=== PATIENT | female | born 1980 | race Caucasian/White ===

== ENCOUNTER 2017-04-04 12:28 | Emergency (ER) | payer OTHER ==
[2017-04-04] MEDS ORDERED: Adacel (T-DAP) 0.5 ML VIAL ONE (14:24)
== END 2017-04-04 14:50 | disposition home or self-care (01) ==
LOC: ERS 12:28
DX: S61.012A Laceration without foreign body of left thumb without damage to nail, initial encounter (principal); G43.909 Migraine, unspecified, not intractable, without status migrainosus; F17.210 Nicotine dependence, cigarettes, uncomplicated; W26.0XXA Contact with knife, initial encounter
CPT/HCPCS: 12001; 90471; 90715

== ENCOUNTER 2018-08-20 08:55 | Outpatient (CLI) | payer OTHER ==
--- NOTE | 2018-08-20 11:58 | ULT ---
RIGHT BREAST ULTRASOUND: HISTORY: Brownish discharge from the right nipple. CORRELATION: Mammogram from the same day. FINDINGS: Sonographic evaluation of the retroareolar region of the right breast demonstrates a dilated duct, me asuring about 5 mm. No intraarticular mass is seen. IMPRESSION: BI-RADS category 0-Incomplete assessment. Further evaluation with breast MRI (with and without intra venous contrast) is recommended. POS: OFF
--- NOTE | 2018-08-21 15:32 | MMO ---
MAMMO Bilat Diag [facility]. CLINICAL HISTORY: Patient is 38 years old and is seen for diagnostic exam and bloody discharge in the right breast. The patient has no family history of breast cancer. The patient has no personal history of cancer. VIEWS: The views performed were: bilateral craniocaudal with tomosynthesis; bilateral mediolateral oblique with tomosynthesis; bilateral mediolateral; and bilateral exaggerated craniocaudal. FILMS COMPARED: The present examination has been compared to a prior imaging study performed at [facility] on 08/20/2018. MAMMOGRAM FINDINGS: There are scattered fibroglandular densities. There are no suspicious masses, calcifications or areas of architectural distortion. Right breast US shows a dilated duct without intraductal mass. IMPRESSION: FINDING IN THE RIGHT BREAST REQUIRES ADDITIONAL EVALUATION. BREAST MRI IS RECOMMENDED. THE RESULTS OF THIS EXAM WERE SENT TO THE PATIENT. ACR BI-RADS Category 0 - Incomplete: Need additional imaging evaluation. [facility] will notify the patient of the need for additional imaging services. MAMMOGRAPHY NOTE: 1. A negative mammogram report should not delay a biopsy if a dominant of clinically suspicious mass is present. 2. Approximately 10% to 15% of breast cancers are not detected by mammography. 3. Adenosis and dense breasts may obscure an underlying neoplasm.
== END 2018-08-20 08:56 | disposition home or self-care (01) ==
LOC: BICMAMMO 08:55
PROVIDERS: ATTEND Advanced Practice Midwife
DX: N64.52 Nipple discharge (principal)
CPT/HCPCS: 77066; G0279

== ENCOUNTER 2018-10-16 08:19 | Outpatient (CLI) | payer OTHER ==
--- NOTE | 2018-10-18 10:29 | MRI ---
MRI BREAST WITH AND WITHOUT IV CONTRAST AND 3D PROCESSING ON INDEPENDENT WORKSTATION: Date: 10/16/18 HISTORY: Bloody discharge from right nipple. CORRELATION: Mammograms and right breast ultrasound of 08/20/18. FINDINGS: A dilated duct is seen close to the right nipple. No mass or abnormal postcontrast enhancement is not ed on either side. No lymphadenopathy is noted in the axillary or internal mammary lymph nodes. No ab normal skin thickening is seen. IMPRESSION: 1. BIRADS Category 2 - Benign findings. Return to annual mammographic screening. 2. Surgical consultation for right ductal excision is recommended. This study was interpreted in consultation with Dr. Dajuan Perez, who concurs. POS: [facility]
== END 2018-10-16 08:20 | disposition home or self-care (01) ==
LOC: BICMRI 08:19
PROVIDERS: ATTEND Advanced Practice Midwife
DX: N64.52 Nipple discharge (principal)
CPT/HCPCS: A9577; C8908

== ENCOUNTER 2018-11-07 16:10 | Outpatient (CLI) | payer OTHER ==
[2018-11-07 17:28] LABS: #Basophils 0.1 thou/uL (0.0-0.2); #Eosinphils 0.1 thou/uL (0.0-0.7); #Lymphocytes 1.9 thou/uL (1.20-3.40); #Monocytes 0.6 thou/uL (0.11-0.59); %Basophils 0.8 % (0.0-1.0); %Eosinophils 1.3 % (0.0-10.0); %Lymphocytes 19.8 % (21.0-51.0); %Monocytes 6.3 % (0.0-10.0); %Neutrophils 71.9 % (42.0-75.0); Hemoglobin 14.1 g/dL (12.0-16.0); Mean Corpuscular Volume 99.8 fL (78.0-98.0); Mean Platelet Volume 7.2 fL (7.4-10.4); Platelet Count 287 thou/uL (130-400); RBC Distribution Width 11.7 % (11.5-14.5); Red Blood Cell (RBC) Count 4.16 mill/uL (4.20-5.40); White Blood Cell (WBC) Count 9.7 thou/uL (4.8-10.8)
== END 2018-11-07 16:11 | disposition home or self-care (01) ==
LOC: LABBT 16:10
PROVIDERS: ATTEND Surgery
DX: Z01.812 Encounter for preprocedural laboratory examination (principal); N64.52 Nipple discharge
CPT/HCPCS: 85025

== ENCOUNTER 2018-11-14 05:43 | Day surgery (SDC) | payer OTHER ==
[2018-11-07 16:47] VITALS: BMI 22.3
[2018-11-14] MEDS ORDERED: Fentanyl 100 MCG/2 ML VIAL ONE ×3 (06:40→09:07)
[2018-11-14] MEDS ORDERED: Bupivacaine/Epinephrine 0.25% 30 ML VIAL ONE (06:54)
[2018-11-14] MEDS ORDERED: Famotidine/PF 20 mg/2ml Vial ONE (07:05)
[2018-11-14] MEDS ORDERED: Midazolam HCl 2 mg/2 ml Vial ONE (07:05)
[2018-11-14] MEDS ORDERED: Morphine 4 MG/ML VIAL ONE (08:55)
[2018-11-14] MEDS ORDERED: Promethazine HCl 25 MG/ML VIAL ONE (10:56)
--- NOTE | 2018-11-14 13:12 | OP ---
DATE OF PROCEDURE: 11/14/2018 PREOPERATIVE DIAGNOSIS: Right bloody nipple discharge. PROCEDURE PERFORMED: Right lactiferous duct excision. INDICATIONS: This is a 38-year-old female, who has been having right bloody nipple discharge. Mammo and ultrasound show a dilated duct. No family history of breast cancer. FINDINGS: Two dilated ducts, one in the inferior lateral duct on the right, but then it became evident that the actual bloody discharge was coming from a superior medial duct that was excised. DESCRIPTION OF PROCEDURE: After informed consent was obtained, the patient was taken to the operating room and given general mask anesthesia, placed in the supine position. Her right breast was prepped and draped in usual fashion. Using a 4-0 Prolene, milked the nipple to express some discharge. It was a coming from the central nipple. The 4-0 Prolene suture was then threaded through what it appeared to be the duct that was bleeding. Then, a local anesthesia infiltrated subcutaneously and deep, a subareolar or periareolar incision was performed. Using sharp dissection, the areola was lifted off the breast. From underneath the nipple, the blue suture could be seen in the duct. This duct was then clamped and the duct excised sharply. It was marked with a blue suture superior and a white suture lateral. However, I continued to see nipple discharge even after this duct had been clamped and removed. So, after a little bit more dissection, I could see some bloody fluid in a second duct and that duct was clamped and excised and again marked with a Prolene suture anterior, and a white suture lateral, sent to Pathology for further analysis. Now, there was no further drainage. Hemostasis achieved with electrocautery. The wound irrigated. Irrigation fluid removed. The subcu reapproximated with interrupted 3-0 Vicryl. Skin closed with interrupted 4-0 Rapide. Steri-Strips applied. Sterile bandage applied. The patient tolerated the procedure well, transferred to Recovery in good condition. Sponge and needle count verified correct x2. Job ID: [id number]
== END 2018-11-14 11:52 | disposition home or self-care (01) ==
LOC: SDC 05:43
PROVIDERS: ATTEND Surgery
PROC: 0HJT0ZZ Inspection of Right Breast, Open Approach (ICD-10-PCS; principal; 2018-11-14)
DX: D24.1 Benign neoplasm of right breast (principal); N60.31 Fibrosclerosis of right breast; Z80.3 Family history of malignant neoplasm of breast; Z88.2 Allergy status to sulfonamides
CPT/HCPCS: 88307; J0690; J2250; J2270; J2550; J3010; S0028

== ENCOUNTER 2018-11-16 22:45 | Emergency (ER) | payer OTHER ==
[2018-11-16 23:21] LABS: #Basophils 0.1 thou/uL (0.0-0.2); #Eosinphils 0.2 thou/uL (0.0-0.7); #Monocytes 0.6 thou/uL (0.11-0.59); #Neutrophils 4.2 thou/uL (1.40-6.50); %Basophils 0.9 % (0.0-1.0); %Eosinophils 2.1 % (0.0-10.0); %Lymphocytes 37.3 % (21.0-51.0); %Monocytes 7.3 % (0.0-10.0); %Neutrophils 52.4 % (42.0-75.0); Hemoglobin 13.8 g/dL (12.0-16.0); Mean Corpuscular Hemoglobin 35.6 pg (27.0-31.0); Mean Corpuscular Volume 98.8 fL (78.0-98.0); Mean Platelet Volume 7.6 fL (7.4-10.4); Platelet Count 259 thou/uL (130-400); RBC Distribution Width 11.4 % (11.5-14.5); Red Blood Cell (RBC) Count 3.88 mill/uL (4.20-5.40)
[2018-11-16 23:42] LABS: ALT (SGPT) 11 U/L (8-55); AST (SGOT) 17 U/L (5-34); Albumin 4.2 g/dL (3.5-5.0); Alkaline Phosphatase 53 U/L (40-150); Anion Gap 10 mmol/L (10-20); BUN (Urea Nitrogen) 11 mg/dL (7.0-18.7); Bilirubin, Total 0.4 mg/dL (0.2-1.2); Calc. Creatinine Clearance 0 mL/min (70-130); Calcium 9.8 mg/dL (7.8-10.44); Carbon Dioxide 29 mmol/L (22-29); Chloride 107 mmol/L (98-107); Estimated GFR-MDRD Greater than 90; Globulin 2.8 g/dL (2.4-3.5); Glucose 106 mg/dL (70-105); Potassium 3.7 mmol/L (3.5-5.1); Sodium 142 mmol/L (136-145)
[2018-11-17] MEDS ORDERED: Ketorolac Tromethamine 60 MG/2 ML VIAL ONE (00:37)
== END 2018-11-17 01:12 | disposition home or self-care (01) ==
LOC: ERS 22:45
DX: L76.32 Postprocedural hematoma of skin and subcutaneous tissue following other procedure (principal); Z87.891 Personal history of nicotine dependence; Z79.899 Other long term (current) drug therapy
CPT/HCPCS: 36415; 80053; 85025; 96372; J1885

== ENCOUNTER 2020-09-08 22:14 | Emergency (ER) | payer OTHER | END 2020-09-09 00:23 | disposition home or self-care (01) | LOC: ERS 22:14 | DX: K59.00 Constipation, unspecified (principal); G43.909 Migraine, unspecified, not intractable, without status migrainosus; Z87.891 Personal history of nicotine dependence | CPT/HCPCS: 99283 ==

== ENCOUNTER 2020-12-13 21:32 | Emergency (ER) | payer OTHER | END 2020-12-13 23:26 | disposition home or self-care (01) | LOC: ERS 21:32 | DX: K59.00 Constipation, unspecified (principal) | CPT/HCPCS: 99283 ==

== ENCOUNTER 2020-12-14 17:47 | Emergency (ER) | payer OTHER ==
[2020-12-14] MEDS ORDERED: Glycerin Pediatric Sup. (4ml) ONE (20:44)
[2020-12-14 20:56] LABS: #Eosinphils 0.1 thou/uL (0.0-0.7); #Lymphocytes 1.8 thou/uL (1.20-3.40); #Monocytes 0.6 thou/uL (0.11-0.59); #Neutrophils 7.6 thou/uL (1.40-6.50); %Basophils 0.1 % (0.0-1.0); %Eosinophils 0.9 % (0.0-10.0); %Lymphocytes 17.7 % (21.0-51.0); %Monocytes 5.9 % (0.0-10.0); %Neutrophils 75.3 % (42.0-75.0); Hemoglobin 13.9 g/dL (12.0-16.0); Mean Corpuscular HGB CONC 35.4 g/dL (32.0-36.0); Mean Corpuscular Hemoglobin 33.9 pg (27.0-31.0); Mean Corpuscular Volume 95.7 fL (78.0-98.0); Mean Platelet Volume 7.4 fL (7.4-10.4); Platelet Count 273 thou/uL (130-400); RBC Distribution Width 11.8 % (11.5-14.5); Red Blood Cell (RBC) Count 4.12 mill/uL (4.20-5.40); White Blood Cell (WBC) Count 10.1 thou/uL (4.8-10.8)
[2020-12-14] MEDS ORDERED: Ketorolac Tromethamine 30 MG/ML VIAL ONE (21:01)
[2020-12-14 21:11] LABS: ALT (SGPT) 17 U/L (8-55); AST (SGOT) 19 U/L (5-34); Albumin 4.1 g/dL (3.5-5.0); Alkaline Phosphatase 53 U/L (40-110); Anion Gap 12 mmol/L (10-20); BUN (Urea Nitrogen) 16 mg/dL (7.0-18.7); Bilirubin, Total 0.8 mg/dL (0.2-1.2); Calc. Creatinine Clearance 0 mL/min (70-130); Calcium 9.3 mg/dL (7.8-10.44); Carbon Dioxide 21 mmol/L (22-29); Chloride 108 mmol/L (98-107); Glucose 96 mg/dL (70-105); Potassium 3.4 mmol/L (3.5-5.1); Protein, Total 7.1 g/dL (6.0-8.3); Sodium 138 mmol/L (136-145)
[2020-12-14] MEDS ORDERED: Magnesium Citrate 300 ML BOT ONE (22:12)
== END 2020-12-14 22:20 | disposition home or self-care (01) ==
LOC: ERS 17:47
DX: K59.00 Constipation, unspecified (principal); Z87.891 Personal history of nicotine dependence
CPT/HCPCS: 36415; 74018; 80053; 85025; 96374; J1885

== ENCOUNTER 2024-06-17 11:08 | Emergency (ER) | payer OTHER ==
[2024-06-17] MEDS ORDERED: Acetaminophen 500 MG TAB ONE (11:17)
[2024-06-17] MEDS ORDERED: Ondansetron ODT 4 MG TAB ONE (11:17)
== END 2024-06-17 12:18 | disposition home or self-care (01) ==
LOC: ERS 11:08
DX: U07.1 COVID-19 (principal); Z87.891 Personal history of nicotine dependence
CPT/HCPCS: 87428; 99283; Q0162